=== PATIENT | female | born 1960 | race Caucasian/White ===

== ENCOUNTER 2017-12-03 10:16 | Emergency (ER) | payer OTHER ==
[~2017-12-03] VITALS: Ht 160 cm; Wt 68.0 kg
[2017-12-03 10:21] VITALS: BP 137/93
== END 2017-12-03 11:09 | disposition left against medical advice (07) ==
LOC: ER 10:48
DX: R10.9 Unspecified abdominal pain (principal); R11.0 Nausea; Z53.21 Procedure and treatment not carried out due to patient leaving prior to being seen by health care provider